=== PATIENT | male | born 1965 | race Caucasian/White ===

== ENCOUNTER 2024-08-04 23:55 | Inpatient (IN) | payer OTHER, SELFPAY ==
[2024-08-04] VITALS (9 sets, daily range): BP systolic 135–187; BP diastolic 86–102; BMI 28.0
[2024-08-04 22:00] LABS: % Basophils 0.3 % (0-2); % Eosinophils 0.1 % (0-6); % Immature Granulocytes 0.5 % (0-0.5); % Lymphocytes 10.2 % (20.5-51.1); % Monocytes 4.6 % (1.7-9.3); % Neutrophils 84.3 % (42.2-75.2); Absolute Lymphocytes 0.9 10^3/uL (1.2-3.4); Absolute Monocytes 0.4 10^3/uL (0.1-0.6); Absolute Neutrophils 7.3 10^3/uL (1.4-6.5); Hematocrit 44.2 % (39.0-52.0); Hemoglobin 15.1 g/dL (13.0-18.0); Mean Corp Hgb Conc. 34.2 g/dL (33.0-37.0); Mean Corpuscular Hgb 29.8 pg (27.0-31.0); Mean Corpuscular Volume 87.2 fL (80.0-94.0); Mean Platelet Volume 9.4 fL (7.4-10.4); Nucleated Red Blood Cells % 0 % (-); Platelet Count 173 10^3/uL (130-400); Red Blood Cell Count 5.07 10^6/uL (4.70-6.10); Red Cell Dist. Width 12.7 % (11.5-14.5); White Blood Cell Count 8.6 10^3/uL (4.8-10.8)
[2024-08-04 22:28] LABS: ALT (SGPT) 22 U/L (0-50); AST (SGOT) 23 U/L (17-59); Albumin 4.8 g/dl (3.5-5.0); Alkaline Phosphatase 61 U/L (38-126); Blood Urea Nitrogen 23 mg/dl (9-20); Calcium 9.6 mg/dl (8.4-10.2); Carbon Dioxide 25 mmol/L (22-30); Chloride 105 mmol/L (98-107); Estimated Creatinine Clearance 114 ml/min; Glucose 255 mg/dl (70-99); Potassium 4.3 mmol/L (3.5-5.1); Sodium 139 mmol/L (135-145); Total Bilirubin 0.6 mg/dl (0.2-1.3); Total Protein 7.8 g/dl (6.3-8.2); eGFR > 60.00
--- NOTE | 2024-08-04 22:28 | EDRN ---
Patient on the phone with children and youth. Security remains at bedside. Charge nurse spoke with mariam who stated that they were unable to send anyone at this time and that they would call [place] police to sit with patient.
[2024-08-04 22:31] LABS: Troponin I 0.264 ng/ml
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
[2024-08-04] MEDS: ASPIRIN 325 MG PO (22:53)
[2024-08-04] MEDS: NITROSTAT (SUBLINGUAL) 0.4 MG SL ×3 (22:54→23:11)
[2024-08-04 22:57] LABS: NT-proBNP 32.8 pg/ml
[2024-08-04] MEDS: HEPARIN 4000 UNITS IV (23:29)
[2024-08-04] MEDS: HEPARIN 25000 UNITS/250 ML IV (23:31)
[2024-08-04] MEDS: NITROGLYCERIN PREMIX 250 IV (23:37)
[2024-08-05] VITALS (32 sets, daily range): BP systolic 109–157; BP diastolic 60–104; BMI 27.6
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
[2024-08-05 00:29] LABS: Urine Albumin 2+ (Neg - Trace); Urine Bilirubin Negative (Negative); Urine Character Clear (Clear); Urine Color Yellow; Urine Glucose 4+ (Negative); Urine Ketone 2+ (Negative); Urine Leukocyte Negative (Negative); Urine Nitrite Negative (Negative); Urine Occult Blood Negative (Negative); Urine Specific Gravity 1.025 (<1.030); Urine Urobilinogen Negative (Neg - 1+)
--- NOTE | 2024-08-05 00:36 | EDRN ---
Heparin started at 2331
Heparin paused at 0001
PTT drawn about 0016
Heparin restarted at 0018
Lab, pharmacy and Dr. Maya all made aware that ptt was drawn after heparin was initially started.
--- NOTE | 2024-08-05 00:39 | EDRN ---
Per officer Roads
Call [phone] (Fermin ramos)
To mushroom picker patient after d/c
[2024-08-05 00:55] LABS: Amphetamines Negative (Negative); Barbiturates Negative (Negative); Benzodiazepines Negative (Negative); Buprenorphine Negative (Negative); Cocaine Negative (Negative); Marijuana Negative (Negative); Methadone Negative (Negative); Methamphetamines Negative (Negative); Opiates Negative (Negative); Phencyclidine Negative (Negative); Tricyclic Antidepressants Negative (Negative)
[2024-08-05 01:01] LABS: APTT > 200 Sec (23.4-35.0)
[2024-08-05 01:31] LABS: Urine Amorphous Seen; Urine Bacteria Few (Negative); Urine Red Blood Cell 0-2 /HPF (0-2); Urine Uric Acid Crystals Seen; Urine White Cell 0-2 /HPF (0-5)
[2024-08-05] MEDS: TYLENOL 650 MG PO (02:51)
--- NOTE | 2024-08-05 05:58 | PTCARENOTE ---
Received pt from ED via stretcher into room 2253. Tele monitor applied NSR. IV heparin gtt infusing at 14.5, and IV Nitro infusing at 5mcg/min. Patient chest pain free, but does report frontal headache discomfort. Tylenol administered--see MAR for
details. Patient aware to maintain NPO status. Call gayle in reach.
[2024-08-05 06:52] LABS: APTT 78.4 Sec (23.4-35.0)
[2024-08-05 07:07] LABS: Blood Urea Nitrogen 22 mg/dl (9-20); Calcium 8.9 mg/dl (8.4-10.2); Carbon Dioxide 27 mmol/L (22-30); Chloride 108 mmol/L (98-107); Estimated Creatinine Clearance > 125 ml/min; Glucose 177 mg/dl (70-99); HDL Cholesterol 32 mg/dl; LDL Cholesterol, Calculated 83 mg/dl; Potassium 3.5 mmol/L (3.5-5.1); Sodium 140 mmol/L (135-145); Total Cholesterol 159 mg/dl (50-199); Triglyceride 224 mg/dl (10-149); Very Low Density Lipoprotein 44 mg/dl (0-30); eGFR > 60.00
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
[2024-08-05 08:17] LABS: Glucose - Point of Care 209 mg/dl (70-99)
[2024-08-05] MEDS: LOW STRENGTH ASPIRIN 81 MG PO (08:37)
[2024-08-05 09:12] LABS: Glycohemoglobin (HgbA1c) 8.5 % (4.0-5.6)
[2024-08-05 09:55] LABS: Glucose - Point of Care 244 mg/dl (70-99)
--- NOTE | 2024-08-05 10:02 | PTCARENOTE ---
Assumed care at 0700. Patient AO x3. Denies pain or shortness of breath. NSR, chest pain free, nitro gtt at 5mcg/min and heparin infusing at 1450 units/hr. Bedrest maintained urinal at bedside. Blood sugar 208 and 244. Refusing insulin correction.
NPO since midnight, ASA 81 mg Po given with a small sip of water
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
--- NOTE | 2024-08-05 12:06 | W.PN.UPDATE ---
Update Note
Progress Note Update
H&P from after midnight. I have independently evaluated the patient at the bedside. I reviewed the patient's chart and discussed the case with cardiology. AFVSS
59-year-old male with NIDDM and medication noncompliance, possible history of ASCVD though unclear, that presented with crushing chest pain associated with diaphoresis. Upon arrival had ECG with T wave flattening and inversion over multiple studies
with peak troponin 2.4. Started on IV heparin drip with aspirin and statin. Labs with LDL 83, A1c 8.5%. Evaluated by cardiology today but refusing left heart cath.
NSTEMI. Elevated troponin, inferior T wave inversion, basal wall hypokinesis on echo. Refusing left heart cath. Spoke with cardiology and will continue with medical management. Continue heparin drip for now with aspirin and statin daily.
Consider beta-bela if heart rate accelerates. Monitor on telemetry. LDL goal 55
Poorly controlled NIDDM with A1c 8.5%. Continued on home glipizide. Continue with ISS and Accu-Cheks here. Consider adding metformin at time of discharge. Will need repeat A1c in 3 months. Carb controlled diet
IV heparin drip
Low-cholesterol, carb controlled
Full code
Expected discharge in 24 to 48 hours
Ultimately, with noncompliance to medical recommendations and his high likelihood of obstructive CAD, long-term prognosis is guarded
[2024-08-05 12:22] LABS: Glucose - Point of Care 224 mg/dl (70-99)
[2024-08-05] MEDS: PLAVIX 75 MG PO (12:22)
[2024-08-05] MEDS: ZESTRIL 5 MG PO (12:22)
[2024-08-05 12:35] LABS: Glucose - Point of Care 222 mg/dl (70-99)
[2024-08-05 13:15] LABS: APTT 75.8 Sec (23.4-35.0)
[2024-08-05 16:49] LABS: Glucose - Point of Care 233 mg/dl (70-99)
--- NOTE | 2024-08-05 17:44 | PTCARENOTE ---
Patient with no complaints of pain, Nitro gtt stopped, PO meds ordered and given. Heparin infusing at 1450 units/hr. NSR, denies pain, call gayle in reach
[2024-08-05] MEDS: HEPARIN 25000 UNITS/250 ML IV (17:49)
[2024-08-05] MEDS: CRESTOR 20 MG PO (17:49)
[2024-08-05] MEDS: COREG 6.25 MG PO (19:53)
--- NOTE | 2024-08-05 21:02 | PTCARENOTE ---
Received pt @ change of shift. AAOx3. VSS. Heparin running through left hand @ 1450 units/hr. Discussed plan of care for evening. Pt verbalizes understanding. RN reinforced the importance of making sure to follow up. Pt verbalizes understanding.
Call gayle within reach
[2024-08-05 22:42] LABS: Glucose - Point of Care 220 mg/dl (70-99)
[2024-08-06 03:49] VITALS: BP 137/79
--- NOTE | 2024-08-06 04:34 | PTCARENOTE ---
Pt refused bloodwork this morning. RN educated on the importance of the ordered labs, pt verbalizes understanding, but still refused.
[2024-08-06 06:00] VITALS: BMI 27.5
[2024-08-06] MEDS: PLAVIX 75 MG PO (07:44)
[2024-08-06] MEDS: COREG 6.25 MG PO (07:44)
[2024-08-06] MEDS: LOW STRENGTH ASPIRIN 81 MG PO (07:44)
[2024-08-06] MEDS: ZESTRIL 5 MG PO (07:44)
[2024-08-06 07:49] LABS: Glucose - Point of Care 260 mg/dl (70-99)
[2024-08-06 07:53] VITALS: BP 167/95
--- NOTE | 2024-08-06 08:56 | W.PN.CD ---
Today's Communication / Plan
-
I recommended inpatient cardiac cath. he declines. He understands this increases risk of recurrent MN and .
-he will be discharged and return Thurs for cath
-cont ASA, plavix, coreg, lisinopril, rosuvastatin
Impression / Plan
-
I/P: 59M with HTN, NIDDM, former smoker, family history of premature CAD, and medical non adherence who presented to the ER with a chief complaint of CP.
NSTEMI
-peak trop 2.46
-echo EF 50-55%, basal inferior HK, mild/moderate MR
-I recommended inpatient cardiac cath. he declines. He understands this increases risk of recurrent MN and .
-he will be discharged and return Thurs for cath
-cont ASA, plavix, coreg, lisinopril, rosuvastatin
HTN Urgency
-resolved, and now on regimen above
NIDDM, uncontrolled
-per primary team
Hypertriglyceridemia
-statin added
NSVT
-6 beats on cath: coreg started this admission
Mild/mod MR
-outpatient follow up
Former smoker, continued cessation recommended
Physical Exam
Vital Signs/Labs
Vital Signs
Temp Pulse Resp BP Pulse Ox
98.4 F 83 16 167/95 97
08/06/24 03:49 08/06/24 07:53 08/06/24 03:49 08/06/24 07:53 08/06/24 07:58
08/05/24 08/06/24 08/07/24
06:59 06:59 06:59
Actual Weight 94.9 kg 94.4 kg
APTT 75.8 Sec (23.4-35.0) H 08/05/24 12:52
Triglycerides 224 mg/dl (10-149) H 08/05/24 06:23
LDL Cholesterol, Calc 83 mg/dl 08/05/24 06:23
VLDL Cholesterol, Calc 44 mg/dl (0-30) H 08/05/24 06:23
HDL Cholesterol 32 mg/dl 08/05/24 06:23
08/04/24
21:54
Msn-Z-Xroajbxjrdd Pept 32.8
LAB Results
08/04/24 08/05/24 08/05/24
21:54 00:16 02:29
Troponin I 0.264 H* 1.540 H* D Cancelled
08/05/24 08/05/24 08/05/24
06:23 08:29 12:52
Troponin I 2.460 H* D Cancelled 1.260 H* D
08/05/24 08/05/24
14:29 18:00
Troponin I Cancelled Cancelled
Physical Exam
Constitutional: No acute distress and Comfortable
EENT: Moist mucous membranes
Cardiovascular: Rhythm & rate is regular, Pedal edema is absent, JVD pressure is normal and Systolic murmur absent
Respiratory: Respiratory effort normal and Lungs clear to auscul.
Neuro/Psych: AO x 3
Data Reviewed
-
Date of Service: August 06, 2024
EKG: Other (Tele: SR 70s, 6 beats NSVT)
Echo: Report Reviewed by me (per note)
--- NOTE | 2024-08-06 10:30 | PTCARENOTE ---
Met with patient at bedside regarding patient complaint. Upset that he was told someone would have to call police before he is discharged. He stated this is not true; that he has been talking with police who told him that courts are closed today
and that he could self report tomorrow. We called the [facility] Police Fermin Melchor ([phone]) and confirmed per Miles Shepherd (sp?) that patient is free to leave on his own recognisance and that patient has information on where he is to
report tomorrow. Patient understands that if he fails to show tomorrow, there will be a warrant out for his arrest. This information was communicated with Meseret Moran CM and Kristyn Castillo, Nurse Salt Maker. Patient has my contact info for further
questions/concerns.
[2024-08-06] MEDS: PLAVIX 525 MG PO (10:39)
--- NOTE | 2024-08-06 11:34 | CM ---
Chart reviewed. Patient is independent of ADLS, lives with his adult daughter in a [address], [address], ambulates occasionally with a SPC. Plan is for the patient to return home. Risk Management to see patient.
[2024-08-06 11:56] VITALS: BP 157/93
--- NOTE | 2024-08-06 12:54 | W.PN.HOSP.TC ---
Addendum entered and electronically signed by Herbie Frey MD 08/08/24 15:20:
[id number]
Original Note:
Today's Communication/Plan
-
ASA, plavix, coreg, lisinopril, rosuvastatin
[facility]
Assessment / Plan
Assessment / Plan
General: Other (59y M in no acute distress. Somewhat pressured speech / odd affect.)
HEENT: Moist mucous membranes and PERRLA
Respiratory: Clear; No Wheezes, Rales or Rhonchi
Cardiac: S1/S2 and Regular Rhythm; No Murmur
GI: Soft, Non Tender, Non Distended and Normal Bowel Sounds
Musculoskeletal: No Clubbing, No Cyanosis, No Edema and Other (Onychomycoses all nails.)
Neuro: AO x 3
A/P: Patient is a 59y M with PMH significant for DM-II who presents to ED complaining of chest pain and SOB.
NSTEMI / ACS
- Admit to IVU for further evaluation and treatment.
- Initial troponin elevated and excellent story / multiple risk factors for coronary disease.
-refusing [facility] inpatient; Plan for [facility]
-ASA, plavix, coreg, lisinopril, rosuvastatin
Hypertensive Emergency
- resolved
-cont BB, ACEI
DM-II
- Takes glipizide daily as his only current medication.
- Hold oral med acutely.
- Follow glucose and cover with SSI as needed.
Code Status: Full
More than 30 minutes spent in discharge including
Final examination of the patient
Summarizing hospital stay
Instructions for continuing care to all relevant caregivers
Preparation of discharge records, prescriptions, and referral forms
Total time spent (in minutes):36
Anticipated Discharge: Today
Subjective/Interval History
-
Date of Service: August 06, 2024
No acute events overnight
Objective Data
-
Vital Signs:
Vital Signs
Temp Pulse Resp BP Pulse Ox
98.2 F 78 16 157/93 97
08/06/24 08:00 08/06/24 11:47 08/06/24 08:00 08/06/24 11:56 08/06/24 07:58
I&O
08/05/24 08/06/24 08/07/24
06:59 06:59 06:59
Intake Total 45.9 / 45.9 1140 / 1140
Output Total 50 / 50 875 / 875
Balance -4.1 / -4.1 265 / 265
Review of Systems
-
History Source: Patient
All other systems: Not reviewed unless documented
Data Reviewed
-
Diagnostic Radiology: Report Reviewed by me
Labs: Labs Reviewed by me
--- NOTE | 2024-08-06 12:57 | W.DS.TRANS ---
DC Summary - Credit Correspondence Clerk
-
Discharge Instructions:
Discharge Diagnosis/Procedures NSTEMI
Diet Low Cholesterol,Low Fat
Blood Work as per cardiology
Others Tests Left heart catheterization on
Instructions:
Stand-Alone Forms:
Changes to Home Medications: Yes
Discharge Medications:
DC Medications w/original date entered in [employer]
glipizide 5 mg tablet 10 mg PO DAILY Diabetes 08/05/24
aspirin 81 mg chewable tablet 81 mg PO DAILY 30 days #30 tabs 08/06/24
carvedilol 6.25 mg tablet 6.25 mg PO BID 30 days #60 tabs 08/06/24
clopidogrel 75 mg tablet 75 mg PO DAILY 30 days #30 tabs 08/06/24
lisinopril 5 mg tablet 5 mg PO DAILY 30 days #30 tabs 08/06/24
rosuvastatin 20 mg tablet 20 mg PO QPM 30 days #30 tabs 08/06/24
Home Medication Changes
aspirin 81 mg chewable tablet 81 mg PO DAILY 30 days #30 tabs 08/06/24
carvedilol 6.25 mg tablet 6.25 mg PO BID 30 days #60 tabs 08/06/24
clopidogrel 75 mg tablet 75 mg PO DAILY 30 days #30 tabs 08/06/24
lisinopril 5 mg tablet 5 mg PO DAILY 30 days #30 tabs 08/06/24
rosuvastatin 20 mg tablet 20 mg PO QPM 30 days #30 tabs 08/06/24
Pending Results: No
--- NOTE | 2024-08-06 13:16 | PTCARENOTE ---
Patient discharged to home, teaching provided, patient verbalized understanding. New scripts electronically sent to his pharmacy for chart picker. Patient sister available to drive him home today. Call placed to [place] police verifying that patient could
be discharged to home
== END 2024-08-06 13:53 | disposition home or self-care (01) | DRG 281 ==
LOC: IVU 23:55
PROVIDERS: Student in an Organized Health Care Education/Training Program; ADMITTING PHYSICIAN Hospitalist; ATTENDING PHYSICIAN Internal Medicine; EMERGENCY PHYSICIAN Student in an Organized Health Care Education/Training Program; OTHER PHYSICIAN Internal Medicine
DX: I21.4 Non-ST elevation (NSTEMI) myocardial infarction (principal); I16.1 Hypertensive emergency; I47.29 Other ventricular tachycardia; E78.1 Pure hyperglyceridemia; E11.9 Type 2 diabetes mellitus without complications; I25.10 Atherosclerotic heart disease of native coronary artery without angina pectoris; I10 Essential (primary) hypertension; Z82.49 Family history of ischemic heart disease and other diseases of the circulatory system; Z87.891 Personal history of nicotine dependence; Z65.3 Problems related to other legal circumstances; Z91.199 Patient's noncompliance with other medical treatment and regimen due to unspecified reason; Z88.5 Allergy status to narcotic agent; Z79.84 Long term (current) use of oral hypoglycemic drugs
CPT/HCPCS: 71045; 80048; 80053; 80061; 80306; 81003; 81015; 82962; 83036; 83880; 84484; 85025; 85730; 93005; 93306; 96374; 96375; 99291